=== PATIENT | female | born 1985 | race Caucasian/White ===

== ENCOUNTER → 2017-07-22 | Outpatient (CLI) | payer OTHER ==
[~2017-07-22] MED LIST: FIORICET 325 MG1 TA1 PO; FLEXERIL 1010 MG/TAB PO; MAXALT MLT5 MG PO
== END ==
LOC: MC.RAD 13:55
DX: N63.10 Unspecified lump in the right breast, unspecified quadrant (principal); R92.1 Mammographic calcification found on diagnostic imaging of breast

== ENCOUNTER 2018-07-31 00:48 | Outpatient (CLI) | payer BC, MEDICAID ==
[~2018-07-31] VITALS: Ht 157.5 cm; Wt 84.5 kg
[~2018-07-31 00:48] MED LIST changes: +LIDODERM 5% PATC1 EA TP; +NORCO 325 MG-51 TAB PO; +PHENERGAN 25 TA25 MG PO; +PRENATAL PO
[2018-07-31 00:58] VITALS: BP 128/86; PULSE 75; TEMP 98.1
[2018-07-31] MEDS ORDERED: PRENATAL MVI PO (01:00)
[2018-07-31 01:30] VITALS: BP 116/78; PULSE 83
[2018-07-31 02:02] VITALS: BP 111/72; PULSE 72
== END 2018-07-31 02:10 | disposition home or self-care (01) ==
LOC: LDRO 00:48
DX: O62.9 Abnormality of forces of labor, unspecified (principal); Z3A.39 39 weeks gestation of pregnancy

== ENCOUNTER 2018-08-03 05:00 | Inpatient (IN) | payer BC ==
[~2018-08-03] VITALS: Ht 157.5 cm; Wt 84.5 kg
[2018-08-03] VITALS (16 sets, daily range): BP systolic 93–124; BP diastolic 50–80; PULSE 60–96; TEMP 97.6–98.4
[~2018-08-03 05:00] MED LIST changes: +PRENATAL MVI PO
[2018-08-03 05:54] LABS: BASO % 0.3 % (0.0-2.0); EOS # 0.1 (0.0-0.7); EOS % 0.8 % (0-4.0); GRAN # 8.9 (1.4-6.5); GRAN % 74.6 % (42.2-75.2); HEMATOCRIT 38.3 % (37.0-47.0); HEMOGLOBIN 13.2 g/dl (12.5-16.0); LYMPH # 2.4 (1.2-3.4); LYMPH % 19.7 % (20.0-51.0); MEAN CELL VOLUME 81 fl (80.0-100.0); MEAN CORPUSCULAR HEMOGLOBIN 28 pg (27.0-31.0); MEAN CORPUSCULAR HGB CONC 35 g/dl (33.0-37.0); MEAN PLATELET VOLUME 10.2 fl (7.4-10.4); MONO # 0.5 (0.1-0.6); PLATELET COUNT 254 K/mm3 (130-400); RED BLOOD COUNT 4.75 M/mm3 (4.10-5.30); REDCELL DISTRIBUTION WIDTH-CV 13.3 % (11.5-14.5)
[2018-08-04] VITALS: BP 102/64; PULSE 74; TEMP 98.5
[2018-08-04 09:57] VITALS: BP 101/64; PULSE 89; TEMP 98.5
[2018-08-04] MEDS ORDERED: IBU800 M1 PO (10:14)
== END 2018-08-04 15:15 | disposition home or self-care (01) | DRG 807 ==
LOC: LDRO 05:00 → LDR 05:14 → OB 05:14
PROVIDERS: Student in an Organized Health Care Education/Training Program
PROC: 10E0XZZ Delivery of Products of Conception, External Approach (ICD-10-PCS; principal; 2018-08-03)
DX: O34.03 Maternal care for unspecified congenital malformation of uterus, third trimester (principal); Z37.0 Single live birth; Q51.22 Partial doubling of uterus; Z3A.39 39 weeks gestation of pregnancy; O77.0 Labor and delivery complicated by meconium in amniotic fluid; O99.214 Obesity complicating childbirth
CPT/HCPCS: J2590; J2795; J7120